=== PATIENT | male | born 1960 | race Caucasian/White ===

== ENCOUNTER → 2017-12-01 | Outpatient (CLI) | payer MEDICAID | LOC: CIMAGING 09:50 | PROVIDERS: ATTEND Family Medicine | DX: S99.911A Unspecified injury of right ankle, initial encounter (principal) | CPT/HCPCS: 73590-PO; 73610-PO ==

== ENCOUNTER → 2018-04-11 | Outpatient (CLI) | payer MEDICAID | LOC: CIMAGING 09:57 | PROVIDERS: ATTEND Family Medicine | DX: J98.09 Other diseases of bronchus, not elsewhere classified (principal) | CPT/HCPCS: 71046-PO ==